=== PATIENT | female | born 1985 | race Caucasian/White ===

== ENCOUNTER 2016-10-05 01:35 | Inpatient (IN) | payer OTHER ==
[~2016-10-05] VITALS: Ht 162.6 cm; Wt 72.1 kg
--- NOTE | ~2016-10-05 | FD ---
ADMIT: 10/05/2016 RM/LOC: 224 [facility] MR#: [id number] [address] SYED WILLIS [address] [place] [address] Final Diagnosis SEX: F AGE: 31 : 1985 ADMISSION DATE: 10/05/2016 DISCHARGE DATE: 10/06/2016 ADMITTING DIAGNOSES: 1. Term intrauterine . 2. Intrauterine demise. FINAL DIAGNOSES: 1. Term intrauterine , delivered. 2. Intrauterine demise with stillborn delivery. 3. Spontaneous controlled vaginal delivery. 4. IV Pitocin induction of labor. 5. Epidural anesthesia for labor and delivery analgesia. 6. Local anesthesia for episiotomy and repair. 7. Midline episiotomy without extension, repaired. COMPLICATIONS: Intrauterine demise, undetermined cause. PROCEDURE: Spontaneous controlled vaginal delivery of stillborn male at 1616 hours on 10/05/2016. Sharif Andrew MD/ liz JOB #: [id number] CC: Siobhan Prieto MD, Attending Physician Siobhan Prieto MD, Family Physician
[2016-10-07] MEDS ORDERED: COLACE-DPS100 MG PO (12:58)
[2016-10-07] MEDS ORDERED: PRENATAL VIT1 TAB PO (12:58)
[2016-10-07] MEDS ORDERED: TYLENOL EXTRA500 M1 PO (12:59)
[2016-10-07] MEDS ORDERED: MOTRIN-DPS800 MG PO (12:59)
[2016-10-07] MEDS ORDERED: DERMOPLAST SPRA56 GM TP (12:59)
--- NOTE | 2016-10-10 15:56 | OR ---
ADMIT: 10/05/2016 RM/LOC: 224 [facility] MR#: [id number] [address] SYED WILLIS [address] [place], [place] [id number] Operative/Delivery Room Report SEX: F AGE: 31 : 1985 SURGERY DATE: 10/05/2016 SURGEON: Sharif Andrew MD DATE OF DELIVERY: 10/05/2016. TIME OF : 1616 hours. HISTORY OF PRESENT ILLNESS: The patient is a 31-year-old white female, primigravida, whose predicted EDC is 10/07/2016, placing her currently at 39 weeks and 5 days. The patient has had an uncomplicated until the evening of 10/04/2016, when she noted decreased activity. She has been followed at our office throughout her by Dr. Prieto and has had no significant complications. She presented to the [facility] early on the morning of 10/05/2016 because of no noted movement for over 3 to 4 hours. On initial presentation, no heart tones were able to be found. An OB ultrasound was obtained, which showed no movement and no cardiac activity. Intrauterine demise was diagnosed at that point. It was noted that the patient had had no leakage of fluid or vaginal bleeding. She had had no abdominal discomfort. She was having only an occasional mild contraction. She is admitted to the [facility] with a diagnosis of intrauterine demise. Subsequently, she was started on IV Pitocin for induction of labor. She progressed through labor uneventfully with her labor analgesia provided by epidural anesthesia. Epidural was administered early in the course of her labor. Once she achieved complete dilatation, she was allowed to begin pushing. Uneventful second stage of labor, a nonviable stillborn male infant, weighing 7 pounds 2.5 ounces was delivered at 1616 hours via spontaneous controlled vaginal delivery over a midline episiotomy using a combination of epidural and local anesthesia. Infant was born with no heart rate and no respiratory effort. He was having some sloughing and skin was somewhat denuded over pressure areas. It was also noted at the time of that his umbilical cord was completely clotted with inability to obtain any cord blood. No attempts at resuscitation were made in view of the fact ADMIT: 10/05/2016 RM/LOC: 224 [facility] MR#: [id number] [address] SYED WILLIS [facility] [place] [address] Operative/Delivery Room Report SEX: F AGE: 31 : 1985 that the infant had been for greater than 12 hours. Following delivery of the , the placenta was delivered spontaneously and intact. The placenta had also a normal appearance other than for the clotted umbilical cord. There was no evidence of abruption. inspection revealed the cervix and vagina to be intact with no lacerations or tears. Midline episiotomy was inspected and was found to have no extensions. It was repaired in the usual fashion with 2-0 chromic suture. Estimated blood loss from delivery was less than 250 mL. Infant was inspected post delivery and found to have no gross anatomical abnormalities. Family did request autopsy and as well as placenta will be submitted to the Pathology Department for pathologic analysis and autopsy. Upon my departure from the birthing room, mother was doing well other than for her obvious acute emotional distress. Sharif Andrew MD/ taiwo JOB #: [id number] CC: Siobhan Prieto, Attending Physician Siobhan Prieto, Family Physician
--- NOTE | 2016-10-20 14:54 | DS ---
ADMIT: 10/05/2016 RM/LOC: 224 [facility] MR#: [id number] [address] CHERRI WILLIS [address] [place], [place] [address] Discharge Summary SEX: F AGE: 31 : 1985 ADMISSION DATE: 10/05/2016 DISCHARGE DATE: 10/06/2016 FINAL DIAGNOSES: 1. Term vaginal delivery of stillborn male infant. 2. Intrauterine demise, uncertain etiology. HOSPITAL COURSE: Cherri had an uneventful with cares established in the first trimester. had progressed normally and she was seen in the office on 10/03 with normal vital signs and heart tones. On the evening of 10/05, she said she had not felt much movement and they came into the Birthing Center shortly after midnight. No heart tones could be detected and ultrasound confirmed demise. She was having a few contractions. Labor was induced with IV Pitocin. She delivered on 10/[address] Andrew attended the delivery. He noted amniotic fluid was clear. She had epidural for pain. She had a 2 hour stage II of labor. I saw the patient about 3 hours and she was stable. Again on this morning, 10/06, she is taking Motrin for pain relief. She and her have been in close contact with their genetic technologist and with family. She will be dismissed home and I will follow up with her in 48 hours. We discussed pain relief as well as dealing with breast engorgement and also her grief process. I will follow her very closely in the outpatient setting. She and her opted for autopsy for the baby and that will be done this coming week. Also have pending placenta cultures and Kleihauer-Betke testing. Siobhan Prieto MD/ dianne :22:46 JOB #: [id number] CC: Siobhan Prieto MD, Attending Physician Siobhan Prieto MD, Family Physician
== END 2016-10-06 13:15 | disposition home or self-care (01) | DRG 775 ==
LOC: 2LDRP 01:35 → BC 01:35 → 2LDRP 03:34 → BC 10-07 08:00
PROVIDERS: ADMIT Family Medicine
PROC: 10E0XZZ Delivery of Products of Conception, External Approach (ICD-10-PCS; principal; 2016-10-05)
PROC: 10907ZC Drainage of Amniotic Fluid, Therapeutic from Products of Conception, Via Natural or Artificial Opening (ICD-10-PCS; principal; 2016-10-05)
PROC: 3E033VJ Introduction of Other Hormone into Peripheral Vein, Percutaneous Approach (ICD-10-PCS; principal; 2016-10-05)
PROC: 0W8NXZZ Division of Female Perineum, External Approach (ICD-10-PCS; principal; 2016-10-05)
DX: O36.4XX0 Maternal care for intrauterine death, not applicable or unspecified (principal); Z37.1 Single stillbirth; Z3A.39 39 weeks gestation of pregnancy